=== PATIENT | male | born 1955 | race Caucasian/White ===

== ENCOUNTER 2020-10-23 08:03 | Day surgery (SDC) | payer OTHER ==
[~2020-10-23] VITALS: Ht 175.3 cm; Wt 110.9 kg
[~2020-10-23 08:03] MED LIST: AMLO10 PO; Abilify2 MG PO; Amitriptyline H10 MG PO; Budeprion Xl300 MG PO; DYAZIDE 37.5-21 EACH PO; GABA300 PO; LOSA50 PO; Methocarbamol500 MG PO; OMEP20ER PO
[2020-10-23] MEDS ORDERED: BUSPIRONE HCL7.5 MG (08:36)
--- NOTE | 2020-10-23 08:40 | NUR ---
10/23/20 0840 LOLA DUKES PT BOWEL PREP SUTABS
== END 2020-10-23 10:17 | disposition home or self-care (01) ==
LOC: ORSCSDS 08:03
PROVIDERS: Student in an Organized Health Care Education/Training Program
PROC: 0DBK8ZX Excision of Ascending Colon, Via Natural or Artificial Opening Endoscopic, Diagnostic (ICD-10-PCS; principal; 2020-10-23 09:15)
PROC: 0DBM8ZX Excision of Descending Colon, Via Natural or Artificial Opening Endoscopic, Diagnostic (ICD-10-PCS; principal; 2020-10-23 09:15)
DX: Z12.11 Encounter for screening for malignant neoplasm of colon (principal); D12.4 Benign neoplasm of descending colon; D12.2 Benign neoplasm of ascending colon; K57.30 Diverticulosis of large intestine without perforation or abscess without bleeding; K64.8 Other hemorrhoids; I10 Essential (primary) hypertension; G47.33 Obstructive sleep apnea (adult) (pediatric); K21.9 Gastro-esophageal reflux disease without esophagitis; E66.01 Morbid (severe) obesity due to excess calories; Z68.36 Body mass index [BMI] 36.0-36.9, adult; Z79.899 Other long term (current) drug therapy
CPT/HCPCS: 88305; J2704; J7120

== ENCOUNTER 2021-05-30 06:21 | Day surgery (SDC) | payer OTHER ==
[~2021-05-30] VITALS: Ht 175.3 cm; Wt 114.5 kg
[~2021-05-30 06:21] MED LIST changes: +BUSPIRONE HCL7.5 MG
--- NOTE | 2021-05-30 08:21 | NUR ---
05/30/21 0821 Mario Shetty 30 MG EPI USED TO SOAK PLEDGETS FOR PACKING PER ORDER
== END 2021-05-30 11:42 | disposition home or self-care (01) ==
LOC: ORSCSDS 06:21
PROVIDERS: Otolaryngology
PROC: 09TR4ZZ Resection of Left Maxillary Sinus, Percutaneous Endoscopic Approach (ICD-10-PCS; principal; 2021-05-30 07:30)
PROC: 09SM4ZZ Reposition Nasal Septum, Percutaneous Endoscopic Approach (ICD-10-PCS; principal; 2021-05-30 07:30)
PROC: 09TQ4ZZ Resection of Right Maxillary Sinus, Percutaneous Endoscopic Approach (ICD-10-PCS; principal; 2021-05-30 07:30)
PROC: 8E09XBZ Computer Assisted Procedure of Head and Neck Region (ICD-10-PCS; principal; 2021-05-30 07:30)
DX: J32.9 Chronic sinusitis, unspecified (principal); J34.2 Deviated nasal septum; J34.3 Hypertrophy of nasal turbinates; I10 Essential (primary) hypertension; G47.33 Obstructive sleep apnea (adult) (pediatric); K21.9 Gastro-esophageal reflux disease without esophagitis; Z79.899 Other long term (current) drug therapy; E66.01 Morbid (severe) obesity due to excess calories; Z68.37 Body mass index [BMI] 37.0-37.9, adult
CPT/HCPCS: 88305; 88311; C2625; J0171; J1100; J2250; J2405; J2704; J3010; J7120

== ENCOUNTER → 2021-10-23 | Outpatient (CLI) | payer OTHER | END | disposition home or self-care (01) | LOC: LAB 10:45 → LAB SHORT 10:45 | DX: L08.9 Local infection of the skin and subcutaneous tissue, unspecified (principal) | CPT/HCPCS: 87070; 87075; 87205 ==

== ENCOUNTER → 2025-07-27 | Outpatient (CLI) | payer MEDICARE, OTHER ==
[2025-07-27 13:43] LABS: BASOPHILS ABSOLUTE AUTO 0.06 K/mm3 (0.00-0.23); BASOPHILS PERCENT AUTO 1 % (0-2); EOSINOPHILS ABSOLUTE AUTO 0.22 K/mm3 (0.00-0.68); EOSINOPHILS PERCENT AUTO 3 % (0-6); Hematocrit 48.9 % (37.0-53.0); Hemoglobin 17.6 g/dL (13.5-17.5); IMMATURE GRAN ABSOLUTE AUTO 0.02 K/mm3 (0.00-0.10); IMMATURE GRAN PERCENT AUTO 0 % (0-1); LYMPHOCYTES ABSOLUTE AUTO 2.07 K/mm3 (0.84-5.20); LYMPHOCYTES PERCENT AUTO 26 % (21-46); MONOCYTES ABSOLUTE AUTO 0.87 K/mm3 (0.16-1.47); MONOCYTES PERCENT AUTO 11 % (4-13); Mean Corpuscular HGB Conc 36.0 g/dL (31.5-36.5); Mean Corpuscular Volume 89 fL (80-100); NEUTROPHILS ABSOLUTE AUTO 4.59 K/mm3 (1.96-9.15); NEUTROPHILS PERCENT AUTO 59 % (41-73); NRBC ABSOLUTE 0.00 K/mm3 (0.00-0.02); NRBC Auto 0.0 /100 WBC (0.0-0.2); Platelet Count 149 K/mm3 (150-400); RDW Coefficient Variation 12.4 % (11.7-14.2); RDW Standard Deviation 40.5 fL (35.1-46.3)
[2025-07-27 13:57] LABS: Alanine Aminotransfer (ALT/SGP 30.0 U/L (12-78); Albumin, Blood 3.9 g/dL (3.4-5.0); Albumin/Globulin Ratio 1.0 (0.8-1.8); Anion Gap 12.0 mmol/L (3-11); Aspartate Aminotrans (AST/SGOT 31.0 U/L (12-37); Bilirubin, Total 1.0 mg/dL (0.1-1.0); Blood Urea Nitrogen 18.0 mg/dL (8-24); CO2, Blood 29.0 mmol/L (21-32); Calcium, Blood 9.7 mg/dL (8.5-10.1); Chloride, Blood 104.0 mmol/L (98-108); Creatinine, Blood 1.06 mg/dL (0.60-1.20); Globulin, Blood 4.0 g/dL (2.2-4.0); Glucose, Blood 94.0 mg/dL (70-99); Potassium, Blood 4.0 mmol/L (3.5-5.5); Sodium, Blood 141.0 mmol/L (136-145); Total Protein, Blood 7.9 g/dL (6.4-8.2)
== END ==
LOC: LAB SHORT 13:39 → LAB 13:39
PROVIDERS: Chiropractor
DX: R07.9 Chest pain, unspecified (principal)
CPT/HCPCS: 80053; 84484; 85025; 85379